=== PATIENT | female | born 1965 | race Caucasian/White ===

== ENCOUNTER 2018-06-16 08:52 | Emergency (ER) | payer OTHER | END 2018-06-16 10:58 | disposition home or self-care (01) | LOC: EDH 08:52 | DX: S16.1XXA Strain of muscle, fascia and tendon at neck level, initial encounter (principal); M25.512 Pain in left shoulder; G89.29 Other chronic pain; M54.9 Dorsalgia, unspecified; Z88.1 Allergy status to other antibiotic agents; Z88.6 Allergy status to analgesic agent; Z87.891 Personal history of nicotine dependence; Z90.49 Acquired absence of other specified parts of digestive tract; Z79.899 Other long term (current) drug therapy; V49.49XA Driver injured in collision with other motor vehicles in traffic accident, initial encounter; Y93.89 Activity, other specified; Y92.89 Other specified places as the place of occurrence of the external cause; Y99.8 Other external cause status | CPT/HCPCS: 72125 ==